=== PATIENT | female | born 1940 | race African-American/Black ===

== ENCOUNTER 2016-11-07 17:21 | Emergency (ER) | payer MEDICARE, OTHER ==
[~2016-11-07 17:21] MED LIST: AMLODIPINE PO; ASPI-1035 PO; CLON0.1T PO; GLIPIZIDE PO; INSU3INS6 SUBCUT; INSULIN; LISI40TA4 PO; SIMV20TA6 PO
== END 2016-11-07 18:49 | disposition left against medical advice (07) ==
LOC: ER 18:44
DX: Z53.21 Procedure and treatment not carried out due to patient leaving prior to being seen by health care provider (principal)

== ENCOUNTER 2018-04-17 17:49 | Inpatient (IN) | payer MEDICARE, OTHER ==
[~2018-04-17] VITALS: Ht 170.2 cm; Wt 71.7 kg
[~2018-04-17 17:49] MED LIST changes: -ASPI-1035 PO; +ASPI-1159 PO
[2018-04-17] MEDS ORDERED: SODIUM CHLORIDE 0.9% 1,000 ML IV ONE ×2 (18:06→19:50)
[2018-04-17 18:45] LABS: BG BASE EXCESS 4.5 mmol/L (-2.0-2.0); BG CARBOXYHEMOGLOBIN 1.9 % (0.5-1.5); BG DEOXYHEMOGLOBIN 5.4 % (0.0-5.0); BG FRACTION INSPIRED OXYGEN 21; BG HCO3 ACT 29.9 mmol/L (22.0-26.0); BG METHEMOGLOBIN 0.2 % (0.0-1.5); BG OXYGEN SATURATION 94.5 % (92.0-98.5); BG OXYHEMOGLOBIN 92.5 % (94.0-97.0); BG PCO2 47.9 mmHg (35.0-45.0); BG PH 7.413 (7.350-7.450); BG PO2 76.2 mmHg (75.0-100.0); BG SAMPLE SITE RIGHT RADIAL; BG TOTAL HEMOGLOBIN 12.1 g/dL (12.0-18.0); BG VENT MODE ROOM AIR
[2018-04-17 19:23] LABS: BASOPHILS % 0.6 % (0.0-2.0); HEMATOCRIT. 35.3 % (36.0-48.0); HEMOGLOBIN. 11.1 g/dL (12.0-16.0); LYMPHOCYTES % 12.4 % (20.0-50.0); MEAN CORPUSCULAR HEMOGLOBIN 25.9 pg (28.0-32.0); MEAN CORPUSCULAR VOLUME 82.2 fL (81.0-99.0); MEAN PLATELET VOLUME 8.6 fl (7.4-10.4); MONOCYTES % 6.5 % (2.0-8.0); NEUTROPHILS % 79.5 % (40.0-76.0); PLATELET 305 x1000/uL (130-400); RED BLOOD CELL COUNT 4.29 mill/uL (4.2-5.4); RED CELL DISTRIBUTION WIDTH 16.7 % (11.6-14.6)
[2018-04-17 19:28] LABS: CHLORIDE 97 mEq/L (98-107)
[2018-04-17 19:38] LABS: BETA HYDROXYBUTYRATE 0.1 mMol/L (0.0-0.3)
[2018-04-17] MEDS ORDERED: INSULIN REGULAR (HUMULIN R) 300UNITS/3ML IV ONE (20:00)
[2018-04-17 22:35] LABS: CLARITY URINE CLEAR (CLEAR); COLOR URINE YELLOW (YELLOW); KETONES URINE NEGATIVE (NEGATIVE); LEUKOCYTE ESTERASE URINE NEGATIVE (NEGATIVE); NITRITE URINE NEGATIVE (NEGATIVE); OCCULT BLOOD URINE TRACE (NEGATIVE); PH URINE 7.5 (4.5-8.0); PROTEIN URINE 2+ (NEGATIVE); SPECIFIC GRAVITY URINE 1.021 (1.005-1.030); UROBILINOGEN URINE 0.2 E.U./dL (0.2-1.0)
[2018-04-18] VITALS (7 sets, daily range): BP systolic 132–162; BP diastolic 70–86
[2018-04-18] MEDS ORDERED: ACETAMINOPHEN 325MG TABLET PO PRN (01:30)
[2018-04-18] MEDS ORDERED: DEXTROSE 50% WATER 50ML SYRINGE IV PRN (01:30)
[2018-04-18] MEDS ORDERED: AMLO10TA80 PO (01:49)
[2018-04-18] MEDS ORDERED: ERGO2000 PO (01:49)
[2018-04-18] MEDS ORDERED: CLON0.3T PO (01:49)
[2018-04-18] MEDS ORDERED: FURO-152 PO (01:49)
[2018-04-18] MEDS ORDERED: CARV12.545 PO (01:49)
[2018-04-18] MEDS ORDERED: LIRA0.6P SQ (01:51)
[2018-04-18] MEDS: SODIUM CHLORIDE 0.9% 1,000 ML IV SCH (02:54)
[2018-04-18 04:03] LABS: BASOPHILS % 0.6 % (0.0-2.0); EOSINOPHILS % 0.8 % (0.0-5.0); HEMATOCRIT. 31.7 % (36.0-48.0); HEMOGLOBIN. 10.3 g/dL (12.0-16.0); LYMPHOCYTES % 14.1 % (20.0-50.0); MEAN CORPUSCULAR VOLUME 80.2 fL (81.0-99.0); MEAN PLATELET VOLUME 8.1 fl (7.4-10.4); MONOCYTES % 7.4 % (2.0-8.0); NEUTROPHILS % 77.1 % (40.0-76.0); PLATELET 315 x1000/uL (130-400); RED BLOOD CELL COUNT 3.95 mill/uL (4.2-5.4); RED CELL DISTRIBUTION WIDTH 16.5 % (11.6-14.6)
[2018-04-18 04:09] LABS: CHLORIDE 105 mEq/L (98-107)
[2018-04-18 04:18] LABS: LDL CHOLESTEROL 100 mg/dL (5-100)
[2018-04-18 04:19] LABS: HDL CHOLESTEROL 46 mg/dL (40-59)
[2018-04-18] MEDS ORDERED: PIPERACILLIN/TAZOBACTAM 2.25 G in DEXTROSE 5% WATER 50 ML IV SCH (06:00)
[2018-04-18] MEDS: BLOOD SUGAR DIAGNOSTIC STRIP TEST SCH ×4 (06:04→20:56)
[2018-04-18] MEDS: PIPERACILLIN/TAZOBACTAM 2.25 G in DEXTROSE 5% WATER 50 ML IV SCH ×3 (06:10→20:56)
[2018-04-18] MEDS: HYDRALAZINE HCL 50MG TABLET PO SCH ×3 (06:11→20:56)
[2018-04-18] MEDS: INSULIN LISPRO 100 UNITS/ML SUBCUT SCH ×4 (06:19→20:57)
[2018-04-18] MEDS: ASPIRIN 81MG TABLET PO SCH (09:32)
[2018-04-18] MEDS: ENOXAPARIN 30MG/0.3ML SYR SUBCUT SCH (09:32)
[2018-04-18] MEDS: INSULIN GLARGINE UD 100 UNITS/ML SYR SUBCUT SCH (20:57)
[2018-04-19] VITALS: BP 138/75
[2018-04-19 04:00] VITALS: BP 143/62
[2018-04-19] MEDS: BLOOD SUGAR DIAGNOSTIC STRIP TEST SCH ×4 (06:11→21:58)
[2018-04-19] MEDS: HYDRALAZINE HCL 50MG TABLET PO SCH ×3 (06:11→21:56)
[2018-04-19] MEDS: PIPERACILLIN/TAZOBACTAM 2.25 G in DEXTROSE 5% WATER 50 ML IV SCH ×2 (06:11→13:44)
[2018-04-19] MEDS: INSULIN LISPRO 100 UNITS/ML SUBCUT SCH ×4 (06:24→22:11)
[2018-04-19 07:20] LABS: HEMATOCRIT 31.5 % (36.0-48.0); HEMOGLOBIN 10.2 g/dL (12.0-16.0); MEAN CORPUSCULAR VOLUME 79.9 fL (81.0-99.0); PLATELET 302 x1000/uL (130-400); RED BLOOD CELL COUNT 3.94 mill/uL (4.2-5.4); RED CELL DISTRIBUTION WIDTH 16.5 % (11.6-14.6)
[2018-04-19 08:00] VITALS: BP 128/49
[2018-04-19] MEDS: ASPIRIN 81MG TABLET PO SCH (08:52)
[2018-04-19] MEDS: ENOXAPARIN 30MG/0.3ML SYR SUBCUT SCH (08:53)
[2018-04-19 12:00] VITALS: BP 160/69
[2018-04-19] MEDS: NYSTATIN POWDER 15GM TOP SCH ×2 (13:47→18:11)
[2018-04-19 16:00] VITALS: BP 143/68
[2018-04-19] MEDS: SODIUM CHLORIDE 0.9% 1,000 ML IV SCH (18:16)
[2018-04-19 20:00] VITALS: BP 145/66
[2018-04-19] MEDS: INSULIN GLARGINE UD 100 UNITS/ML SYR SUBCUT SCH (21:57)
[2018-04-20] VITALS: BP 137/69
[2018-04-20 04:00] VITALS: BP 167/79
[2018-04-20] MEDS: HYDRALAZINE HCL 50MG TABLET PO SCH ×3 (06:55→23:26)
[2018-04-20] MEDS: BLOOD SUGAR DIAGNOSTIC STRIP TEST SCH ×4 (07:00→20:20)
[2018-04-20 07:36] LABS: HEMATOCRIT 31.9 % (36.0-48.0); HEMOGLOBIN 10.4 g/dL (12.0-16.0); MEAN CORPUSCULAR VOLUME 79.7 fL (81.0-99.0); PLATELET 308 x1000/uL (130-400); RED BLOOD CELL COUNT 4.01 mill/uL (4.2-5.4); RED CELL DISTRIBUTION WIDTH 16.6 % (11.6-14.6)
[2018-04-20 08:00] VITALS: BP 135/75
[2018-04-20] MEDS: ENOXAPARIN 30MG/0.3ML SYR SUBCUT SCH (09:22)
[2018-04-20] MEDS: INSULIN LISPRO 100 UNITS/ML SUBCUT SCH ×4 (09:22→20:25)
[2018-04-20] MEDS: ASPIRIN 81MG TABLET PO SCH (09:22)
[2018-04-20] MEDS: NYSTATIN POWDER 15GM TOP SCH ×2 (09:23→17:22)
[2018-04-20] MEDS ORDERED: LEVOFLOXACIN 500MG TABLET PO SCH (11:00)
[2018-04-20 12:00] VITALS: BP 138/75
[2018-04-20 16:00] VITALS: BP 125/65
[2018-04-20 20:00] VITALS: BP 143/62
[2018-04-20] MEDS: INSULIN GLARGINE UD 100 UNITS/ML SYR SUBCUT SCH (23:27)
[2018-04-21] VITALS: BP 129/72
[2018-04-21 04:00] VITALS: BP 169/69
[2018-04-21] MEDS: HYDRALAZINE HCL 50MG TABLET PO SCH ×3 (05:36→22:06)
[2018-04-21] MEDS: BLOOD SUGAR DIAGNOSTIC STRIP TEST SCH ×4 (05:56→20:43)
[2018-04-21] MEDS: INSULIN LISPRO 100 UNITS/ML SUBCUT SCH ×4 (06:42→20:48)
[2018-04-21 07:41] LABS: HEMATOCRIT 31.5 % (36.0-48.0); HEMOGLOBIN 10.3 g/dL (12.0-16.0); MEAN CORPUSCULAR HEMOGLOBIN 26.3 pg (28.0-32.0); MEAN CORPUSCULAR VOLUME 80.4 fL (81.0-99.0); PLATELET 294 x1000/uL (130-400); RED BLOOD CELL COUNT 3.92 mill/uL (4.2-5.4); RED CELL DISTRIBUTION WIDTH 16.8 % (11.6-14.6)
[2018-04-21 08:00] VITALS: BP 143/69
[2018-04-21] MEDS: ASPIRIN 81MG TABLET PO SCH (10:17)
[2018-04-21] MEDS: LEVOFLOXACIN 250MG TABLET PO SCH (10:18)
[2018-04-21] MEDS: CLONIDINE 0.1MG TABLET PO SCH ×2 (10:18→20:46)
[2018-04-21] MEDS: NYSTATIN POWDER 15GM TOP SCH ×2 (10:18→17:37)
[2018-04-21] MEDS: ENOXAPARIN 30MG/0.3ML SYR SUBCUT SCH (10:18)
[2018-04-21 12:00] VITALS: BP 120/65
[2018-04-21] MEDS ORDERED: BISACODYL 10MG SUPP PR PRN (12:45)
[2018-04-21] MEDS ORDERED: BISACODYL 10MG SUPP PR SCH (12:45)
[2018-04-21 16:00] VITALS: BP 143/58
[2018-04-21 20:00] VITALS: BP_SYST 144; BP_SYST 149; BP_DIAS 65
[2018-04-21] MEDS: INSULIN GLARGINE UD 100 UNITS/ML SYR SUBCUT SCH (22:07)
[2018-04-22] VITALS: BP 129/56
[2018-04-22 04:00] VITALS: BP 129/75
[2018-04-22] MEDS: BLOOD SUGAR DIAGNOSTIC STRIP TEST SCH ×4 (05:57→21:00)
[2018-04-22] MEDS: INSULIN LISPRO 100 UNITS/ML SUBCUT SCH ×4 (06:03→22:40)
[2018-04-22] MEDS: HYDRALAZINE HCL 50MG TABLET PO SCH ×3 (06:03→22:34)
[2018-04-22 08:00] VITALS: BP 157/76
[2018-04-22] MEDS: ASPIRIN 81MG TABLET PO SCH (08:40)
[2018-04-22] MEDS: CLONIDINE 0.1MG TABLET PO SCH ×2 (08:40→21:00)
[2018-04-22] MEDS: ENOXAPARIN 30MG/0.3ML SYR SUBCUT SCH (08:41)
[2018-04-22] MEDS: NYSTATIN POWDER 15GM TOP SCH ×2 (09:43→18:00)
[2018-04-22] MEDS: LEVOFLOXACIN 250MG TABLET PO SCH (11:38)
[2018-04-22 12:00] VITALS: BP 115/65
[2018-04-22 16:00] VITALS: BP 128/56
[2018-04-22 20:00] VITALS: BP 122/61
[2018-04-22] MEDS: INSULIN GLARGINE UD 100 UNITS/ML SYR SUBCUT SCH (22:41)
[2018-04-23] VITALS (7 sets, daily range): BP systolic 99–158; BP diastolic 59–74
[2018-04-23] MEDS: HYDRALAZINE HCL 50MG TABLET PO SCH ×2 (06:00→14:02)
[2018-04-23] MEDS: BLOOD SUGAR DIAGNOSTIC STRIP TEST SCH ×3 (07:47→17:35)
[2018-04-23] MEDS: INSULIN LISPRO 100 UNITS/ML SUBCUT SCH ×3 (08:12→17:51)
[2018-04-23] MEDS: CLONIDINE 0.1MG TABLET PO SCH (09:18)
[2018-04-23] MEDS: ASPIRIN 81MG TABLET PO SCH (09:18)
[2018-04-23] MEDS: ENOXAPARIN 30MG/0.3ML SYR SUBCUT SCH (09:19)
[2018-04-23] MEDS: NYSTATIN POWDER 15GM TOP SCH ×2 (09:19→17:35)
[2018-04-23] MEDS: LEVOFLOXACIN 250MG TABLET PO SCH (11:00)
[2018-04-23] MEDS ORDERED: DIPHENHYDRAMINE 25MG CAPSULE PO PRN (18:30)
== END 2018-04-23 21:05 | DRG 638 ==
LOC: ER 17:49 → 5WST 21:18 → EDBEDREQ 22:41 → EDBEDREQTM 22:41 → ENRESERV 23:09 → 5WST 04-18 02:22 → 6EST 04-22 20:05
PROVIDERS: ADMIT Internal Medicine; ATTEND Internal Medicine
DX: E11.00 Type 2 diabetes mellitus with hyperosmolarity without nonketotic hyperglycemic-hyperosmolar coma (NKHHC) (principal); N39.0 Urinary tract infection, site not specified; G93.40 Encephalopathy, unspecified; R65.10 Systemic inflammatory response syndrome (SIRS) of non-infectious origin without acute organ dysfunction; E44.0 Moderate protein-calorie malnutrition; R29.6 Repeated falls; R26.9 Unspecified abnormalities of gait and mobility; N18.9 Chronic kidney disease, unspecified; E86.0 Dehydration; E78.1 Pure hyperglyceridemia; F03.90 Unspecified dementia, unspecified severity, without behavioral disturbance, psychotic disturbance, mood disturbance, and anxiety; I12.9 Hypertensive chronic kidney disease with stage 1 through stage 4 chronic kidney disease, or unspecified chronic kidney disease; Z79.4 Long term (current) use of insulin; E11.22 Type 2 diabetes mellitus with diabetic chronic kidney disease; Z86.73 Personal history of transient ischemic attack (TIA), and cerebral infarction without residual deficits; E11.65 Type 2 diabetes mellitus with hyperglycemia; K59.00 Constipation, unspecified; I69.30 Unspecified sequelae of cerebral infarction
CPT/HCPCS: 36415; 36600; 70450; 70551; 71045; 80048; 80053; 80061; 81003; 82010; 82375; 82805; 82962; 83036; 84443; 84484; 85025; 85027; 87040; 87804; 93005; 93970; 96374; 97116; 97162; 97530; 99285; A6261; J1650; J1815; J2543; J7030; J7060; Q0163